=== PATIENT | male | born 1950 | race Hispanic/Latino ===

== ENCOUNTER 2022-04-03 18:07 | Emergency (ER) | payer OTHER ==
--- OUTSIDE RECORDS SUMMARY | 2022-04-03 18:10 | XMS REPORT | Continuity of Care Document ---
:1950 Author Organization [facility] t Address [address] [place] [address] Care Team Providers Name Role Phone ONUR URIBE Primary Care Physician Unavailable Onur Uribe Attending Clinician Unavailable Elvis Andersen Attending Clinician Unavailable Alberto Attending Clinician Unavailable Elvis Andersen Attending Clinician [phone] Herve De La Cruz Attending Clinician [phone] Only, Adc Test Attending Clinician Unavailable Raffy Weber MD Attending Clinician RAFFY WEBER Attending Clinician Unavailable DEEP MELISSA Attending Clinician Unavailable Doctor Unassigned, [place] Attending Clinician Unavailable Herve De La Cruz Attending Clinician Unavailable Sarmad Canales MD Attending Clinician Unavailable KNOW, DOES_NOT Admitting Clinician Unavailable Alberto Admitting Clinician Unavailable Physician, No Primary or Family Admitting Clinician Unavaila ble Payers Payer Name Policy Type Policy Number Effective Date Expiration Date Calderon BURGOS (MEDICARE [id number] 2021 REPLACEMENT PPO) 00:00:00 Problems Condition Condition Condition Status Onset Resolution Last Treating Co mments Source Name Details Category Date Date Treatment Clinician Date Arthritis Arthritis Disease Active 2015-[address] [facility], left, 00:00: Medical degenerati degenerati 00 Ce nter ve ve DJD DJD Disease Active 2015-07 [facility] (degenerat (degenerat 1-08 [facility] joint 00:00: of disease), disease), 00 Medi caryn ankle and ankle and e foot foot HLD HLD Disease Active [facility] (hyperlipi (hyperlipi [facility] llege demia) demia) of Medicin e Allergies, Adverse Reactions, Alerts Allergy Allergy Status Severity Reaction(s) Onset Inactive Treating Comm ents Source Name Type Date Date Clinician No Known DA Active U 2020-07 [facility]14 [place] Allergie 00:00: Orthope s 00 dic Hospita l NO KNOWN Drug Active [facility] ALLERGIE Class ity of S [facility] Social History Social Habit Start Date Stop Date Quantity Comments Source Exposure to Not sure [facility] SARS-CoV-2 (event) of Med icine History SDOH [facility] Alcohol Frequency [facility] History SDOH [facility] Alcohol Std Drinks Medica l Center History SDOH [facility] Alcohol Binge Medical [address] Alcohol intake 2016-05-24 2016-05-24 [facility] Center (finding) Tobacco use and 2016-05-14 2016-05-[address] [facility] exposure 00:00:00 00:00:00 Medical Center History SDOH 2016-05-14 2016-05-[address] [facility] Alcohol Comment 00:00:00 00:00:00 Medical C enter Sex Assigned At [address] [facility] 00:00:00 00:00:00 Medical Center Smoking Status Start Date Stop Date Source Tobacco smoking consumption unknown [facility] Never smoker [facility] o f Medicine Medications Ordered Filled Start Stop Current Ordering Indication Dosage Frequency Signature Comments Components Source Medication Medication Date Date Medication? Clinician (SIG) Name Name aspirin 81 2019-07 Yes 81mg Take 81 mg [facility] tablet 2-28 by mouth Colleg e 15:11: daily. of 24 Medicin e omeprazole 2019-07 Yes 40mg Take 40 mg [facility] (PRILOSEC) 2-28 by mouth. Mya ege 40 MG 15:11: of capsule 24 Medicin e OMEPRAZOLE 2019-07- No Take by [place] joan OR 09-09 mouth. College 15:11: 00:00 of 17 :00 Medicin e pravastatin 2019-07- No 20mg Take 20 mg [facility] (PRAVACHOL) 09-09 by mouth. Co llege 20 MG 15:11: 00:00 of tablet 17 :00 Medicin e valsartan-h 2019-07 2020- No 1{tbl} Take 1 Tab [facility] ydrochlorot 09-09 by mouth. Co llege hiazide 15:11: 00:00 of (DIOVAN-HCT 17 :00 Medicin ) 160-12.5 e MG per tablet atorvastati 2019-07 Yes TK 1 T PO [facility] n (LIPITOR) 0-07 D [facility] 20 MG 00:00: of tablet 00 Medicin e naproxen 2019- No 500mg Take 1 Tab [facility] (NAPROSYN) 08-16 by mouth 2 Co llege 500 MG 00:00: 00:00 times of tablet 00 :00 daily Medicin (with e meals). losartan-hy Yes TK 1 T PO [facility] drochloroth 1-05 D [facility] iazide 00:00: of (HYZAAR) 00 Medicin 50-12.5 MG e per tablet ranitidine, Yes TK 1 T PO [facility] ZANTAC, 150 1-02 BID [facility] MG tablet 00:00: MEALS of 00 Medicin e valsartan-h 2015-07 Yes 1{tbl} QD Take [address] ydrochlorot -11 tablet by Katherine es hiazide 11:16: mouth Medical (DIOVAN-HCT 11 daily. [place] ) 160-12.5 mg per tablet omeprazole 2015-07 Yes 40mg QD Take [address] (PRILOSEC) 11 by mouth [facility] 40 MG 11:16: daily. Medical capsule 11 [place] pravastatin 2015-07 Yes 20mg QD Take [address] (PRAVACHOL) 11 by mouth Luke s 20 MG 11:16: daily. Medical tablet 11 [place] hydrocodone 2015-07 2020- No [facility] -acetaminop 07-23 [place] [facility] (NORCO) 00:00: 00:00 of 10-325 MG 00 :00 Medicin per tablet e valsartan-h 2015-07- [facility] ydrochlorot 1-07-09 College hiazide 00:00: 00:00 of (DIOVAN-HCT 00 :00 Medicin ) 160-12.5 e MG per tablet pravastatin 2019- [facility] (PRAVACHOL) 7-18 07-09 College 20 MG 00:00: 00:00 of tablet 00 :00 Medicin e valsartan-h 2019- No [facility] ydrochlorot 5-03 07-09 [place] hiazide 00:00: 00:00 of (DIOVAN-HCT 00 :00 Medicin ) 320-12.5 e MG per tablet Immunizations Ordered Filled Immunization Date Status Comments Sour e Immunization Name Name SARS-COV-2 COVID-19 2020-09-29 Completed Unive rsity of PFIZER VACCINE 00:00:00 [facility] SARS-COV-2 COVID-19 2020-09-29 Completed Unive rsity of PFIZER VACCINE 00:00:00 [facility] SARS-COV-2 COVID-19 2020-09-08 Completed Unive rsity of PFIZER VACCINE 00:00:00 [facility] SARS-COV-2 COVID-19 2020-09-08 Completed Unive rsity of PFIZER VACCINE 00:00:00 [facility] Procedures Procedure Date / Time Performed Performing Clinician Sour e ASSIGNMENT OF BENEFITS 2021-12-18 14:16:24 Doctor Unassigned, No [facility] Plan of Care Planned Activity Planned Date Details Comments Source Future Scheduled 2022-03-11 INFLUENZA VACCINE Method ist Test 19:45:09 [code = INFLUENZA Hospital VACCINE] Future Scheduled 2022-03-11 HEPATITIS B VACCINES [facility] Test 19:45:09 (1 of 3 - 3-dose Hospital series) [code = HEPATITIS B VACCINES (1 of 3 - 3-dose series)] Future Scheduled 2022-03-11 COVID-[address] Test 19:45:09 (#1) [code = Hospital COVID-19 VACCINE (#1)] Future Scheduled 2022-03-11 Hepatitis C [facility] 19:45:09 screening Hospital (procedure) [code = 048354454] Future Scheduled 2022-03-11 COLONOSCOPY [facility] 19:45:09 SCREENING [code = Hospital COLONOSCOPY SCREENING] Future Scheduled 2022-03-11 SHINGLES VACCINES (1 [facility] Test 19:45:09 of 2) [code = Hospital SHINGLES VACCINES (1 of 2)] Future Scheduled 2022-03-11 65+ PNEUMOCOCC[address] [facility] Test 19:45:09 VACCINE (1 - PCV) Hospital [code = 65+ PNEUMOCOCCAL VACCINE (1 - PCV)] Future Scheduled ORT - XR ANKLE LEFT Ordered: [facility] or [place] of Test 3V (CHARGE ONLY) 07/09/2020 Medicine [code = 34822] Future Scheduled COLON CANCER [facility] ege of Test SCREENING: Medicine COLONOSCOPY [code = COLON CANCER SCREENING: COLONOSCOPY] Future Scheduled TETANUS SHOT (ADULT) [facility] College of Test [code = TETANUS SHOT Medicin e (ADULT)] Future Scheduled HEPATITIS C [facility] ege of Test SCREENING [code = Medicine HEPATITIS C SCREENING] Future Scheduled ZOSTER VACCINE (1 of [facility] of Test 2) [code = ZOSTER Medicine VACCINE (1 of 2)] Future Scheduled PNEUMOVAX >=65 [facility] of Test (PPSV23) [code = Medicine PNEUMOVAX >=65 (PPSV23)] Future Scheduled MEDICARE AWV [facility] of Test (Initial) [code = Medicine MEDICARE AWV (Initial)] Future Scheduled FALL SCREEN [code = [facility] or College of Test FALL SCREEN] Medicine Encounters Start End Encounter Admission Attending Care Care Encounter Source Date/Time Date/Time Type Type Clinicians Facility Department ID 2021-08-07 Outpatient Rony, [facility] Common 13:34:07 Onur [id number] [facility] 2021-08-07 Outpatient Rony, [facility] Common 13:32:23 Onur [id number] [facility] 2021-08-07 [facility] 13:28:46 Onur [id number] [facility] 2021-08-07 Outpatient Rony, [facility] Common 12:18:47 Onur [id number] [facility] 2022-02-25 2022-02-20 Inpatient EM IRINA AndersenTO DAYS [id number] [facility] 15:00:00 15:00:00 Elvis [facility] 2022-02-07 2022-02-07 Outpatient FOG_Luo_Ran AOSM AOSM [id number] [facility]ana 00:00:00 00:00:00 Ramonita [id number] [facility] 2022-01-28 2022-01-28 Outpatient FOG_Luo_Ran AOSM AOSM [id number] Briana 03:03:00 03:03:00 leighann_ [id number] [facility] 2022-01-28 2022-01-28 Outpatient CARMEN Andersen AOSM [id number] 00:00:00 00:00:00 Elvis Castillo [id number] 2022-01-24 2022-01-24 Outpatient FOG_Luo_Ran AOSM AOSM [id number] [place]ana 11:04:00 11:04:00 Ramonita [id number] [facility] 2022-01-23 2022-01-23 Outpatient FOG_Luo_Ran AOSM AOSM [id number] Briana 01:03:00 01:03:00 Ramonita [id number] [facility] 2022-01-23 2022-01-23 Outpatient Herve De La Cruz AOSM AOSM [id number] 00:00:00 00:00:00 Y [id number] 2022-01-21 2022-01-21 Outpatient FOG_Luo_Ran AOSM AOSM [id number] [place] 11:03:00 11:03:00 Ramonita [id number] [facility] 2022-01-20 2022-01-20 Outpatient FOG_Luo_Ran AOSM AOSM [id number] [place] 06:42:00 06:42:00 Ramonita [id number] [facility] 2022-01-07 2022-01-07 Outpatient FOG_Luo_Ran AOSM AOSM [id number] Briana 05:29:00 05:29:00 leighann_ [id number] [facility] 2021-12-30 2021-12-30 Outpatient FOG_Luo_Ran AOSM AOSM [id number] [place] 02:02:00 02:02:00 Ramonita [id number] [facility] 2021-12-18 2021-12-18 Laboratory Only, Adc Test [facility] [id number]. [id number] Univers 09:45:00 10:00:00 Only Raffy Weber [id number] ity of [place] [id number] [facility] [id number] [facility] [address] Branch 2021-12-18 2021-12-18 Outpatient R TIM [facility] [id number] Univers 09:45:00 09:45:00 RAFFY [facility] 2021-12-18 2021-12-18 Outpatient R BELÉN [facility] [id number] Univers 09:15:00 09:15:00 DEEP [facility] 2021-12-18 2021-12-18 Orders Doctor ANAHI [id number] Univers 00:00:00 00:00:00 Only Unassigned, SAMSON [id number] [place] [facility] [id number] [facility] [id number] [facility] 00[address] Branch 2021-07-09 2021-07-09 Inpatient ROSE JonoHerve [facility] [id number] [facility] 06:08:00 06:08:00 56 [place] [facility] 2020-07-09 2020-07-09 Office BELEN Canales [id number] [facility] 09:10:03 09:20:03 Visit Sarmad Alejandro AMBULATOR [id number] [place] [facility] [id number] of [id number] [facility] 600 e 2020-04-09 2020-04-09 Outpatient RONY [facility] [id number] [address] [place] [address] 00:00:00 00:00:00 ONUR [address] 2020-04-09 2020-04-09 Outpatient RONY, [facility] [id number] [place] 00:00:00 00:00:00 ONUR Madrigal6 [facility] Results This patient has no known results.
--- NOTE | 2022-04-03 18:38 | RAD REPORT ---
EXAM DESCRIPTION: CT - Head Brain Wo Cont - 04/03/2022 6:32 pm CLINICAL HISTORY: direct blow COMPARISON: No comparisons TECHNIQUE: Axial 5 mm thick images of the head were obtained without IV contrast. All CT scans are performed using dose optimization technique as appropriate and may include automated exposure control or mA/KV adjustment according to patient size. FINDINGS: No intracranial hemorrhage, mass, edema or shift of mid-line structures. No acute infarcti on changes seen. No cortical edema or sulcal effacement. Atrophy changes are mild with ventricles in proportion. Minimal chronic ischemic changes are present. There is a small posterior left parietal sc alp hematoma. Underlying bone is intact. Mastoid air cells and visualized portions of the paranasal sinuses are clear. No acute bony findings. IMPRESSION: Negative non-contrast CT head examination for intracranial acute finding. Small posterior left parietal scalp hematoma with underlying bone intact.
--- NOTE | 2022-04-03 18:44 | EDPHYS ---
Physician Documentation [facility] Name: Harry Alston Age: 71 yrs Sex: Male : 1950 Arrival Date: 04/03/2022 Time: 18:19 Bed DIS1 Private MD: ED Physician Anival Richardson HPI: 04/03 18:34 This 71 yrs old Male presents to ER via Unassigned with complaints of head snw injury. 18:34 The patient or guardian reports injury, swelling, tenderness. The complaints affect the snw left temporal area. Context of injury: The problem was sustained at a sports field or court, resulted from a direct blow, golf ball. Onset: The symptoms/episode began/occurred suddenly, just prior to arrival. Associated signs and symptoms: Loss of consciousness: This patient did not experience any loss of consciousness. Pertinent positives: injury. Severity of symptoms: At their worst the symptoms were moderate, in the emergency department the symptoms have improved. The patient has not experienced similar symptoms in the past. The patient has not recently seen a physician. ROS: 18:33 Constitutional: Negative for fever, chills, and weight loss, Eyes: Negative for injury, snw pain, redness, and discharge, ENT: Negative for injury, pain, and discharge, Neck: Negative for injury, pain, and swelling, Cardiovascular: Negative for chest pain, palpitations, and edema, Respiratory: Negative for shortness of breath, cough, wheezing, and pleuritic chest pain, Abdomen/GI: Negative for abdominal pain, nausea, vomiting, diarrhea, and constipation, Back: Negative for injury and pain, : Negative for injury, bleeding, discharge, and swelling, MS/Extremity: Negative for injury and deformity, Skin: Negative for injury, rash, and discoloration, Psych: Negative for depression, anxiety, suicide ideation, homicidal ideation, and hallucinations. 18:33 Neuro: Positive for dizziness, of the left temporal area, s/p being struck with golf ball on the course. Exam: 18:33 Constitutional: This is a well developed, well nourished patient who is awake, alert, snw and in no acute distress. Eyes: Pupils equal round and reactive to light, extra-ocular motions intact. Lids and lashes normal. Conjunctiva and sclera are non-icteric and not injected. Cornea within normal limits. Periorbital areas with no swelling, redness, or edema. ENT: Nares patent. No nasal discharge, no septal abnormalities noted. Tympanic membranes are normal and external auditory canals are clear. Oropharynx with no redness, swelling, or masses, exudates, or evidence of obstruction, uvula midline. Mucous membranes moist. Neck: Trachea midline, no thyromegaly or masses palpated, and no cervical lymphadenopathy. Supple, full range of motion without nuchal rigidity, or vertebral point tenderness. No Meningismus. Chest/axilla: Normal chest wall appearance and motion. Nontender with no deformity. No lesions are appreciated. Cardiovascular: Regular rate and rhythm with a normal S1 and S2. No gallops, murmurs, or rubs. Normal PMI, no JVD. No pulse deficits. Respiratory: Lungs have equal breath sounds bilaterally, clear to auscultation and percussion. No rales, rhonchi or wheezes noted. No increased work of breathing, no retractions or nasal flaring. Abdomen/GI: Soft, non-tender, with normal bowel sounds. No distension or tympany. No guarding or rebound. No evidence of tenderness throughout. Back: No spinal tenderness. No costovertebral tenderness. Full range of motion. Skin: Warm, dry with normal turgor. Normal color with no rashes, no lesions, and no evidence of cellulitis. MS/ Extremity: Pulses equal, no cyanosis. Neurovascular intact. Full, normal range of motion. Neuro: Awake and alert, GCS 15, oriented to person, place, time, and situation. Cranial nerves II-XII grossly intact. Motor strength 5/5 in all extremities. Sensory grossly intact. Cerebellar exam normal. Normal gait. Psych: Awake, alert, with orientation to person, place and time. Behavior, mood, and affect are within normal limits. 18:33 Head/face: Noted is hematoma, that is moderate, of the left temporal area, minimal bleeding. Vital Signs: 18:55 BP 133 / 87; Resp 16; Temp 98.1; Pulse Ox 100% on R/A; iw [place] Coma Score: 18:34 Eye Response: spontaneous(4). Verbal Response: oriented(5). Motor Response: obeys snw commands(6). Total: 15. 18:58 Eye Response: spontaneous(4). Verbal Response: oriented(5). Motor Response: obeys snw commands(6). Total: 15. MDM: 18:20 Patient medically screened. snw 18:58 Data reviewed: vital signs, nurses notes. Data interpreted: Pulse oximetry: on room air snw is 100 %. Interpretation: normal. Counseling: I had a detailed discussion with the patient and/or guardian regarding: the historical points, exam findings, and any diagnostic results supporting the discharge/admit diagnosis, radiology results, the need for outpatient follow up, to return to the emergency department if symptoms worsen or persist or if there are any questions or concerns that arise at home. Special discussion: Based on the patient's history, exam and DX evaluation, there is no indication for emergent intervention or inpatient [place]. It is understood by the patient/guardian that if the SXs persist or worsen they need to return immediately for re-evaluation. 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 Exp: iw 11/10/2022. Lot #: [id number]. } Route: IM; Site: left deltoid; Disposition Summary: 04/03/22 18:43 Discharge Ordered Location: Home snw Condition: Stable snw Diagnosis - Unspecified injury of head, initial encounter snw - Hematoma snw Followup: snw - With: Emergency Department - When: As needed - Reason: Worsening of condition Followup: snw - With: Private Physician - When: 2 - 3 days - Reason: Recheck today's complaints, Continuance of care, Re-evaluation by your physician Discharge Instructions: - Discharge Summary Sheet snw - Head Injury, Adult snw - Hematoma snw Forms: - Medication Reconciliation Form snw - Thank You Letter snw - Antibiotic Education snw - Prescription Opioid Use snw Prescriptions: - orphenadrine citrate 100 mg Oral Tablet Sustained Release - take 1 tablet by ORAL route 2 times per day As needed; 20 tablet; Refills: 0, snw Product Selection Permitted Signatures: Dispatcher [employer] EDWA Linda Lenz FNP-C FNP-[place] Sylwia Witt, RN RN iw
[2022-04-03] MEDS ORDERED: TETANUS & DIPHTHERIA TOX,ADULT 0.5 ML VIAL ONE (18:54)
--- NOTE | 2022-04-03 19:10 | ER ---
Nurse's Notes [facility] Name: Harry Alston Age: 71 yrs Sex: Male : 1950 Arrival Date: 04/03/2022 Time: 18:19 Bed DIS1 Private MD: Diagnosis: Unspecified injury of head, initial encounter;Hematoma Presentation: 04/03 18:54 Acuity: DEACON 4 iw Vital Signs: 18:55 BP 133 / 87; Resp 16; Temp 98.1; Pulse Ox 100% on R/A; iw [place] Coma Score: 18:34 Eye Response: spontaneous(4). Verbal Response: oriented(5). Motor Response: obeys snw commands(6). Total: 15. 18:58 Eye Response: spontaneous(4). Verbal Response: oriented(5). Motor Response: obeys snw commands(6). Total: 15. ED Course: 18:19 Patient arrived in ED. iw 18:19 Sylwia Witt RN is Primary Nurse. iw 18:20 Linda Lenz FNP-C is PHCP. snw 18:20 Anival Richardson MD is Attending Physician. snw 18:39 CT In Process Unspecified. EDMS 18:54 Triage completed. 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 Exp: iw 11/10/2022. Lot #: [id number]. } Route: IM; Site: left deltoid; Outcome: 18:43 Discharge ordered by . snw 19:09 Patient left the ED. iw Signatures: Dispatcher [employer] EDMS Linda Lenz FNP-C REHAB CONSULTANT-Csnw Sylwia Witt RN RN iw
[2022-04-05 07:36] VITALS: BP 133/87; TEMP 98.1; O2SAT 100
== END 2022-04-03 19:09 | disposition home or self-care (01) ==
LOC: ER 18:07
DX: S09.90XA Unspecified injury of head, initial encounter (principal); S00.83XA Contusion of other part of head, initial encounter; Z23 Encounter for immunization
CPT/HCPCS: 70450; 90471; 90714; 99283